=== PATIENT | female | born 1980 | race Caucasian/White ===

== ENCOUNTER 2020-01-22 17:48 | Emergency (ER) | payer OTHER ==
[~2020-01-22] VITALS: Ht 154.9 cm; Wt 59.3 kg
[2020-01-22] MEDS ORDERED: IV NORMAL SALINE 1,000ML 1,000 ML IV SCH (18:35)
[2020-01-22] MEDS ORDERED: IOHEXOL 300 MG/ML 75 ML VIAL. IV ONE (18:45)
[2020-01-22] MEDS ORDERED: ONDANSETRON PF 4 MG/2 ML VIAL. IVP ONE (18:45)
[2020-01-22] MEDS ORDERED: KETOROLAC 30 MG/ML VIAL. IVP ONE (18:45)
[2020-01-22 18:59] LABS: BASO % 0 % (0-3); EOS # 0.1 x10^3/uL (0.0-0.7); EOS % 3 % (0-3); HEMATOCRIT 41.6 % (36.0-47.0); HEMOGLOBIN 13.9 g/dL (12.0-15.5); LYMPH # 2.2 x10^3/uL (1.0-4.8); LYMPH % 46 % (24-48); MEAN CORPUSCULAR HEMOGLOBIN 33 pg (25-35); MEAN CORPUSCULAR HGB CONC 33 g/dL (31-37); MEAN CORPUSCULAR VOLUME 97 fL (79-100); MONO # 0.6 x10^3/uL (0.0-1.1); MONO % 12 % (0-9); NEUT # 1.9 x10^3uL (1.8-7.7); NEUT % 40 % (31-73); PLATELET COUNT 322 x10^3/uL (140-400); RED BLOOD COUNT 4.27 x10^6/uL (3.50-5.40); WHITE BLOOD COUNT 4.7 x10^3/uL (4.0-11.0)
[2020-01-22 19:01] LABS: CALCIUM 8.9 mg/dL (8.5-10.1); CREATININE 0.8 mg/dL (0.6-1.0); GFR 80.3; POTASSIUM 3.7 mmol/L (3.5-5.1)
[2020-01-22 19:07] LABS: ALBUMIN 4.3 g/dL (3.4-5.0); ALBUMIN/GLOBULIN RATIO 1.3 (1.0-1.7); TOTAL BILIRUBIN 0.4 mg/dL (0.2-1.0); TOTAL PROTEIN 7.6 g/dL (6.4-8.2)
--- NOTE | 2020-01-22 19:13 | PHYS DOC ---
Past History Past Medical History: Migraines Past Surgical History: Cholecystectomy, , Tubal ligation Alcohol Use: Occasionally Adult General Chief Complaint Chief Complaint: ABDOMINAL PAIN HPI HPI Patient is a 39-year-old female who presents with complaint of lower abdominal pain that started a couple of days ago and has progressively gotten worse. She describes pain as sharp in nature. She does indicate that this morning she noticed that she had decreased appetite which has gone throughout the entire day. She states that the pain has progressively gotten worse today and currently she rates it at a 6 out of 10. She states that pain is worsened when she sits upright at 90 and some pain with walking. She denies any vomiting or diarrhea. She also denies any fever. She does indicate that pain was more central in onset but has migrated to the right side.[] Review of Systems Review of Systems Constitutional: Denies fever or chills [] Respiratory: Denies cough or shortness of breath [] Cardiovascular: No additional information not addressed in HPI [] GI: Complains of lower abdominal pain without vomiting or diarrhea [] : Denies dysuria or hematuria [] Neurologic: Denies headache, focal weakness or sensory changes [] All other systems were reviewed and found to be within normal limits, except as documented in this note. Current Medications Current Medications Current Medications Medications (Trade) Dose Ordered Sig/[facility] Start Time Stop Time Status Last Admin Dose Admin Iohexol (Omnipaque 300 Mg/ml) 75 ml 1X ONCE 01/22/20 18:45 01/22/20 18:46 DC Ketorolac Tromethamine (Toradol 30mg Vial) 30 mg 1X ONCE 01/22/20 18:45 01/22/20 18:46 DC 01/22/20 18:55 30 MG Ondansetron HCl (Zofran) 4 mg 1X ONCE 01/22/20 18:45 01/22/20 18:46 DC 01/22/20 18:55 4 MG Sodium Chloride 1,000 ml @ 1,000 mls/hr Q1H 01/22/20 18:35 01/22/20 19:34 01/22/20 18:54 1,000 MLS/HR Allergies Allergies Allergies Coded Allergies Type Severity Reaction Last Updated Verified No Known Drug Allergies 01/22/20 No Physical Exam Physical Exam Constitutional: Well developed, well nourished, no acute distress, non-toxic appearance. [] HENT: Normocephalic, atraumatic, bilateral external ears normal, oropharynx moist, no oral exudates, nose normal. [] Eyes: PERRLA, EOMI, conjunctiva normal, no discharge. [] Neck: Normal range of motion, no tenderness, supple, no stridor. [] Cardiovascular: Regular rate and rhythm[] Lungs & Thorax: Bilateral breath sounds clear to auscultation [] Abdomen: Bowel sounds normal, soft, with tenderness to palpation in the right lower abdomen. [] Skin: Warm, dry, no erythema, no rash. [] Extremities: No tenderness, no cyanosis, no clubbing, ROM intact, no edema. [] Neurologic: Alert and oriented X 3, no focal deficits noted. [] Current Patient Data Vital Signs Vital Signs Date Time Temp Pulse Resp B/P (MAP) Pulse Ox O2 Delivery O2 Flow Rate FiO2 01/22/20 18:00 98.0 63 16 150/86 (107) 100 Room Air Lab Results Laboratory Tests Test 01/22/20 18:15 White Blood Count 4.7 x10^3/uL (4.0-11.0) Red Blood Count 4.27 x10^6/uL (3.50-5.40) Hemoglobin 13.9 g/dL (12.0-15.5) Hematocrit 41.6 % (36.0-47.0) Mean Corpuscular Volume 97 fL (79-100) Mean Corpuscular Hemoglobin 33 pg (25-35) Mean Corpuscular Hemoglobin Concent 33 g/dL (31-37) Red Cell Distribution Width 13.0 % (11.5-14.5) Platelet Count 322 x10^3/uL (140-400) Neutrophils (%) (Auto) 40 % (31-73) Lymphocytes (%) (Auto) 46 % (24-48) Monocytes (%) (Auto) 12 % (0-9) H Eosinophils (%) (Auto) 3 % (0-3) Basophils (%) (Auto) 0 % (0-3) Neutrophils # (Auto) 1.9 x10^3uL (1.8-7.7) Lymphocytes # (Auto) 2.2 x10^3/uL (1.0-4.8) Monocytes # (Auto) 0.6 x10^3/uL (0.0-1.1) Eosinophils # (Auto) 0.1 x10^3/uL (0.0-0.7) Basophils # (Auto) 0.0 x10^3/uL (0.0-0.2) EKG EKG [] Radiology/Procedures Radiology/Procedures [] Impressions: PROCEDURE: US PELVIS W/TV Exam: Ultrasound pelvis without Indication: Lower abdominal pain Technique: Real-time grayscale and color Doppler images of the pelvis were obtained by the department custodial engineer. Comparisons: CT same day FINDINGS: Uterus measures 8.2 x 4.9 x 3.2 cm. Endometrium is 3 mm in thickness. Right ovary measures 2.7 x 2.9 x 2.0 cm. Left ovary measures 2.8 x 1.8 x 2.0 cm. Vascular flow is identified within the ovaries bilaterally. No free fluid. IMPRESSION: Normal sonographic appearance of the uterus and ovaries. Electronically signed by: Ger Phelps MD (01/22/2020 9:05 PM) [id number] PROCEDURE: CT ABD PELV W/ IV CONTRST ONLY Exam: CT of abdomen and pelvis with contrast INDICATION: Right lower quadrant pain TECHNIQUE: Sequential axial images through the abdomen and pelvis obtained following the administration of 75 mL of Omni 300 IV contrast. Sagittal and coronal reformatted images were reconstructed from the axial data and reviewed. Comparisons: None FINDINGS: Heart size is normal. No pericardial effusion. Visualized lung bases are clear. No pleural effusion. Liver, spleen, pancreas and adrenals are unremarkable. Gallbladder is absent. No perinephric inflammation or hydronephrosis. No renal or ureteral calculi are identified. Bladder is distended and appears thin-walled. Uterus not enlarged. No abnormal adnexal mass. Large and small bowel are unremarkable. Appendix is normal. No free intra-abdominal air or fluid. No obstruction. Bowel aorta has a normal course and caliber. Abdominal vasculature is patent. No enlarged intra-abdominal lymph nodes are identified. No suspicious osseous lesions or acute fractures. IMPRESSION: 1. Normal appendix. 2. Cystic lesions at the adnexa, largest at the right adnexa measuring approximately 2.7 cm, likely ovarian in etiology however incompletely characterized on CT. Exposure: One or more of the following in the visualized dose reduction techniques were utilized for this examination: 1. Automated exposure control 2. Adjustment of the MA and/or KV according to patient size 3. Use of iterative of reconstructive technique Electronically signed by: Ger Phelps MD (01/22/2020 7:44 PM) [id number] DICTATED AND SIGNED BY: GER PHELPS MD DATE: 01/22/201943 CC: PAUL EDMONDSON Jr. DO; PCP,NO ~ Course & Med Decision Making Course & Med Decision Making Pertinent Labs and Imaging studies reviewed. (See chart for details) [] Dragon Disclaimer Dragon Disclaimer This electronic medical record was generated, in whole or in part, using a voice recognition dictation system. Departure Departure: Impression: Primary Impression: Lower abdominal pain Disposition: HOME, SELF-CARE Condition: STABLE Referrals: PCP,TANVI (PCP) Patient Instructions: Abdominal Pain Scripts Ondansetron (ONDANSETRON ODT) 4 Mg Tab.rapdis 1 TAB PO PRN Q6-8HRS PRN for NAUSEA, #12 TAB Prov: PAUL EDMONDSON Jr. DO 01/22/20 Hydrocodone Bit/Acetaminophen (NORCO 5-325 TABLET) 1 Each Tablet 1 TAB PO PRN Q6HRS PRN for PAIN, #12 TAB 0 Refills Prov: PAUL EDMONDSON Jr. DO 01/22/20 Diclofenac Sodium (DICLOFENAC SODIUM) 50 Mg Tablet.dr 1 TAB PO BID PRN for PAIN, #20 TAB Prov: PAUL EDMONDSON Jr. DO 01/22/20 PAUL EDMONDSON Jr. DO Jan 22, 2020 19:13
--- NOTE | 2020-01-22 19:46 | RAD ---
Exam: CT of abdomen and pelvis with contrast INDICATION: Right lower quadrant pain TECHNIQUE: Sequential axial images through the abdomen and pelvis obtained following the administration of 75 mL of Omni 300 IV contrast. Sagittal and coronal reformatted images were reconstructed from the axial data and reviewed. Comparisons: None FINDINGS: Heart size is normal. No pericardial effusion. Visualized lung bases are clear. No pleural effusion. Liver, spleen, pancreas and adrenals are unremarkable. Gallbladder is absent. No perinephric inflammation or hydronephrosis. No renal or ureteral calculi are identified. Bladder is distended and appears thin-walled. Uterus not enlarged. No abnormal adnexal mass. Large and small bowel are unremarkable. Appendix is normal. No free intra-abdominal air or fluid. No obstruction. Bowel aorta has a normal course and caliber. Abdominal vasculature is patent. No enlarged intra-abdominal lymph nodes are identified. No suspicious osseous lesions or acute fractures. IMPRESSION: 1. Normal appendix. 2. Cystic lesions at the adnexa, largest at the right adnexa measuring approximately 2.7 cm, likely ovarian in etiology however incompletely characterized on CT. Exposure: One or more of the following in the visualized dose reduction techniques were utilized for this examination: 1. Automated exposure control 2. Adjustment of the MA and/or KV according to patient size 3. Use of iterative of reconstructive technique Electronically signed by: Karen Flores MD (01/22/2020 7:44 PM) [id number]
[2020-01-22 19:54] LABS: BACTERIA,URINE 0 /HPF (0-FEW); BILIRUBIN,URINE NEG (NEG); CLARITY,URINE CLEAR; COLOR,URINE STRAW; GLUCOSE,URINE NEG (NEG); NITRITE,URINE NEG (NEG); SQUAMOUS EPITHELIAL CELL,UR OCC /LPF; UROBILINOGEN,URINE 0.2 mg/dL (0.2 mg/dL); WBC,URINE OCC /HPF (0-4)
--- NOTE | 2020-01-22 21:08 | RAD ---
Exam: Ultrasound pelvis without Indication: Lower abdominal pain Technique: Real-time grayscale and color Doppler images of the pelvis were obtained by the department gardener florist. Comparisons: CT same day FINDINGS: Uterus measures 8.2 x 4.9 x 3.2 cm. Endometrium is 3 mm in thickness. Right ovary measures 2.7 x 2.9 x 2.0 cm. Left ovary measures 2.8 x 1.8 x 2.0 cm. Vascular flow is identified within the ovaries bilaterally. No free fluid. IMPRESSION: Normal sonographic appearance of the uterus and ovaries. Electronically signed by: Karen Flores MD (01/22/2020 9:05 PM) [id number]
[2020-01-22] MEDS ORDERED: HYDR-3165 PO (21:13)
[2020-01-22] MEDS ORDERED: ONDA4TAB12 PO (21:13)
[2020-01-22] MEDS ORDERED: DICL50TA4 PO (21:13)
[2020-01-22 21:36] VITALS: BP 117/80
== END 2020-01-22 21:45 | disposition home or self-care (01) ==
LOC: ER 17:48
DX: R10.31 Right lower quadrant pain (principal); G43.909 Migraine, unspecified, not intractable, without status migrainosus; Z90.49 Acquired absence of other specified parts of digestive tract; Z98.51 Tubal ligation status; Z98.890 Other specified postprocedural states
CPT/HCPCS: 36415; 74177; 76830; 76856; 80053; 81001; 83690; 85025; 96374; 96375; 99285; J1885; J2405; Q9967; J7030

== ENCOUNTER 2021-09-11 15:24 | Emergency (ER) | payer OTHER ==
[~2021-09-11] VITALS: Ht 154.9 cm; Wt 59.3 kg
[~2021-09-11 15:24] MED LIST: DICL50TA4 PO; HYDR-3165 PO; ONDA4TAB12 PO
[2021-09-11] MEDS: NAPROXEN 500 MG TABLET PO ONE ×2 (15:45→15:51)
[2021-09-11] MEDS ORDERED: HYDROcodone/APAP 5/325MG 1 TAB TABLET PO ONE (15:45)
--- NOTE | 2021-09-11 15:45 | PHYS DOC ---
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 She states her right knee dislocated and reduced itself. Patient states the pain is worse on weightbearing. Describes the pain as sharp and constant. She states she has tried [id number] pain relievers with no relief. (MADALYN CASTRO APRN) Review of Systems Review of Systems Constitutional: Denies fever or chills []] Musculoskeletal: Reports right knee pain Integument: Denies rash or skin lesions [] Neurologic: Denies headache, focal weakness or sensory changes [] All other systems were reviewed and found to be within normal limits, except as documented in this note. (MADALYN CASTRO APRN) Allergies Allergies Allergies Coded Allergies Type Severity Reaction Last Updated Verified No Known Drug Allergies 01/22/20 No (MADALYN CASTRO APRN) Physical Exam Physical Exam Constitutional: Well developed, well nourished, no acute distress, non-toxic appearance. [] Skin: Warm, dry, no erythema, no rash. [] Back: No tenderness, no CVA tenderness. [] Extremities: Right knee with no obvious deformity. Mild soft tissue swelling noted on the right knee. Diffuse tenderness throughout the right knee. Limited range of motion to the right knee due to pain. +2 right pedal pulse. Cap refill less than 2 seconds of right lower extremity. Sensation intact to the right lower extremity. Neurologic: Alert and oriented X 3, normal motor function, normal sensory function, no focal deficits noted. [] Psychologic: Affect normal, judgement normal, mood normal. [] (MADALYN CASTRO [employer]IFYING [employer] OPERATOR) EKG EKG [] (MADALYN CASTRO PURIFYING PLANT OPERATOR) Radiology/Procedures Radiology/Procedures []PROCEDURE: KNEE RIGHT 4V Right knee 3 views. HISTORY: Pain 3 views were taken of the right knee. There is not evidence of a fracture or acute osseous abnormality. There is a joint effusion. IMPRESSION: 1. Moderate joint effusion. 2. No fracture or other acute osseous abnormality right knee. Electronically signed by: Linus Lepe MD (09/11/2021 4:25 PM) [facility] DICTATED AND SIGNED BY: LINUS LEPE MD DATE: 09/11/21 1624 CC: MATT OSHEA; MADALYN CASTRO APRN ~MTH0 0 ([address]) Heart Score C/O Chest Pain: N/A Risk Factors: Risk Factors: DM, Current or recent (<one month) smoker, HTN, HLP, family history of CAD, obesity. Risk Scores: Risk Factors: DM, Current or recent (<one month) smoker, HTN, HLP, family history of CAD, obesity. (MADALYN CASTRO APRN) Course & Med Decision Making Course & Med Decision Making Pertinent Labs and Imaging studies reviewed. (See chart for details) This is a 40-year-old female patient presenting to the ED today with right knee pain that began yesterday during adult gymnastic. Right knee x-rays interpreted by radiologist were negative for any acute findings, noted for moderate joint effusion. Jed bandage and immobilizer applied to the right knee by the ED RN, neurovascular exam done by the RN is normal. Patient has crutches. Ice elevation encouraged. Follow-up with orthopedic doctor in the course of this week (MADALYN CASTRO APRN) Course & Med Decision Making I was the Attending physician on the above date of service of this patient. This patient was evaluated, examined, treated, and dispositioned from the emergency department by the mid-level practitioner. Although I was working at the time , no assistance was requested. Electronically signed, Lisandra Hooper DO (LISANDRA HOOPER DO) Kika Disclaimer Kika Disclaimer This electronic medical record was generated, in whole or in part, using a voice recognition dictation system. (MADALYN CASTRO [employer]ING [employer] OPERATOR) Departure Departure: Impression: Primary Impression: Right knee pain Additional Impression: Joint effusion of knee Disposition: HOME / SELF CARE / HOMELESS Condition: STABLE Referrals: MATT OSHEA (PCP) REJI LYNCH Jr. DO Contact his office in the course of this week and set up a follow-up appointment Patient Instructions: Knee Effusion, [id number], Knee Pain, [id number] Additional Instructions: You were seen for right knee pain, your right knee x-rays are negative for any acute findings, you were noted to have joint effusion/fluid in your knee. Try to wear the Jed bandage and immobilizer provided as tolerated. Try to ice and elevate the extremity. Please contact the provided orthopedic doctor in the course of this week and set up a follow-up appointment Scripts Naproxen (NAPROXEN) 500 Mg Tablet 1 TAB PO BID for pain, #14 TAB 0 Refills Prov: MADALYN CASTRO [employer]ING [employer] OPERATOR 09/11/21 Methylprednisolone (MEDROL) 4 Mg Tab.ds.pk 1 PKG PO UD, #1 PKG Prov: MADALYN CASTRO [employer]ING [employer] OPERATOR 09/11/21 Hydrocodone Bit/Acetaminophen (HYDROCODONE-APAP 5-325 ) 1 Each Tablet 1 TAB PO PRN Q6HRS PRN for PAIN, #14 TAB 0 Refills Prov: MADALYN CASTRO [employer]ING [employer] OPERATOR 09/11/21 Problem Qualifiers Primary Impression: Right knee pain Chronicity: acute Qualified Codes: M25.561 - Pain in right knee Additional Impression: Joint effusion of knee Laterality: right Qualified Codes: M25.461 - Effusion, right knee MADALYN CASTRO DOMINGO Sep 11, 2021 15:45 LISANDRA HOOPER DO Sep 13, 2021 07:07
--- NOTE | 2021-09-11 16:27 | RAD ---
Right knee 3 views. HISTORY: Pain 3 views were taken of the right knee. There is not evidence of a fracture or acute osseous abnormalit y. There is a joint effusion. IMPRESSION: 1. Moderate joint effusion. 2. No fracture or other acute osseous abnormality right knee. Electronically signed by: Linus Lepe MD (09/11/2021 4:25 PM) [facility]
[2021-09-11] MEDS ORDERED: METH4TAB2 PO (16:41)
[2021-09-11] MEDS ORDERED: HYDR-2155 PO (16:41)
[2021-09-11] MEDS ORDERED: NAPR-514 PO (16:41)
[2021-09-11 17:05] VITALS: BP 128/67
== END 2021-09-11 17:05 | disposition home or self-care (01) ==
LOC: ER 15:24
DX: M25.461 Effusion, right knee (principal); M25.561 Pain in right knee; G43.909 Migraine, unspecified, not intractable, without status migrainosus
CPT/HCPCS: 29505; 73564; 99283